=== PATIENT | female | born 1940 | race Caucasian/White ===

== ENCOUNTER 2017-12-26 12:14 | Inpatient (IN) | payer OTHER ==
[~2017-12-26] VITALS: Ht 167.6 cm; Wt 79.4 kg
[2017-12-26 13:46] LABS: BASOPHILS % 0.3 % (0.0-1.0); EOSINOPHILS # (AUTO) 0.2 (0.0-0.4); EOSINOPHILS % 2.2 % (0.0-6.0); HEMATOCRIT 35.5 % (34.2-44.1); HEMOGLOBIN 11.2 g/dL (12.0-16.0); LYMPHOCYTES # (AUTO) 1.8 (1.0-3.2); LYMPHOCYTES % 25.4 % (18.0-39.1); MEAN CORPUSCULAR HEMOGLOBIN 27.1 pg (28-32); MEAN CORPUSCULAR HGB CONC 31.5 g/dL (31-35); MONOCYTES # (AUTO) 0.8 (0.2-0.8); MONOCYTES % 11.1 % (4.4-11.3); NEUTROPHILS # (AUTO) 4.4 (2.1-6.9); NEUTROPHILS % 60.9 % (38.7-80.0); PLATELET COUNT 249 x10e3/uL (140-360); RED BLOOD COUNT 4.13 x10e6/uL (3.6-5.1); RED CELL DISTRIBUTION WIDTH 13.7 % (11.7-14.4)
[2017-12-26 14:10] LABS: ANION GAP 13.8 mmol/L (8-16); BLOOD UREA NITROGEN 21 mg/dL (7-26); BUN/CREATININE RATIO 24 (6-25); CARBON DIOXIDE 24 mmol/L (22-29); CHLORIDE 107 mmol/L (98-107); CREATININE, SERUM 0.89 mg/dL (0.57-1.11); EST GLOMERULAR FILTRATION RATE > 60 ML/MIN (60-); GLUCOSE 103 mg/dL (74-118); POTASSIUM 4.8 mmol/L (3.5-5.1); SODIUM 140 mmol/L (136-145)
--- NOTE | 2017-12-26 16:06 | Diagnostic Imaging Report ---
FOOT LEFT COMPLETE HISTORY: Infected left toe, left big toe. COMPARISON: None available. FINDINGS: Bones: No acute displaced fracture. Plantar and and dorsal calcaneal enthesophytes. Corticated erosions of the first metatarsal head. Osseous alignment is within normal limits. Joints: Moderate degenerative changes of the metatarsal phalangeal joints and interphalangeal joints. Scattered degenerative changes of the midfoot. Soft tissues: The soft tissues appear unremarkable. IMPRESSION: Corticated erosions of the first metatarsal head may represent sequela of prior osteomyelitis. Given reported known infected left toe, recommend MRI or bone scan for more sensitive evaluation. Signed by: DR. Ashish Felix MD on 12/26/2017 4:02 PM
[2017-12-26] MEDS ORDERED: LISINOPRIL10 MG PO (17:42)
[2017-12-26] MEDS ORDERED: GLUCOPHAGE850 MG PO (17:42)
[2017-12-26] MEDS ORDERED: GLIMEPIRIDE2 MG PO (17:42)
[2017-12-26] MEDS ORDERED: DEXTROSE 50% SYRINGE 50 ML IV PRN (18:00)
[2017-12-26] MEDS ORDERED: ONDANSETRON HCL INJ 2 MG/ML VIAL IV PRN (18:00)
[2017-12-26] MEDS ORDERED: SODIUM CHLORIDE FLUSH 10 ML SYR INJ PRN (18:00)
[2017-12-26] MEDS ORDERED: MORPHINE SULFATE 2 MG/ML SYR IV PRN (18:00)
[2017-12-26] MEDS ORDERED: HYDRALAZINE HCL 20 MG/ML VIAL ONE (18:34)
[2017-12-26] MEDS: PIPERACILLIN/TAZO 2.25 GM 50 ML IV SCH (18:49)
[2017-12-26 19:30] VITALS: BP 174/78
[2017-12-26 20:00] VITALS: BP 174/75
[2017-12-26] MEDS ORDERED: SODIUM CHLORIDE 0.9% 250ML 250 ML ONE (20:55)
[2017-12-26] MEDS: VANCOMYCIN 1GM/NS 250 ML 250 ML IV SCH (20:57)
[2017-12-26] MEDS: INSULIN LISPRO 100 UNIT/1 ML 3ML VIAL SQ SCH (21:00)
[2017-12-27] VITALS (7 sets, daily range): BP systolic 155–189; BP diastolic 72–92
[2017-12-27 06:19] LABS: BASOPHILS % 0.2 % (0.0-1.0); EOSINOPHILS # (AUTO) 0.2 (0.0-0.4); EOSINOPHILS % 2.7 % (0.0-6.0); HEMATOCRIT 35.1 % (34.2-44.1); HEMOGLOBIN 11.4 g/dL (12.0-16.0); LYMPHOCYTES # (AUTO) 1.2 (1.0-3.2); MEAN CORPUSCULAR HEMOGLOBIN 27.3 pg (28-32); MEAN CORPUSCULAR HGB CONC 32.5 g/dL (31-35); MONOCYTES # (AUTO) 0.5 (0.2-0.8); MONOCYTES % 8.8 % (4.4-11.3); PLATELET COUNT 237 x10e3/uL (140-360); RED BLOOD COUNT 4.18 x10e6/uL (3.6-5.1); RED CELL DISTRIBUTION WIDTH 13.8 % (11.7-14.4)
[2017-12-27 06:38] LABS: ALANINE AMINOTRANSFERASE 11 IU/L (0-55); ALBUMIN 3.6 g/dL (3.5-5.0); ALBUMIN/GLOBULIN RATIO 1.1 (0.8-2.0); ALKALINE PHOSPHATASE 69 IU/L (40-150); ANION GAP 7.2 mmol/L (8-16); BLOOD UREA NITROGEN 16 mg/dL (7-26); BUN/CREATININE RATIO 18 (6-25); CALCIUM 10.4 mg/dL (8.4-10.2); CARBON DIOXIDE 30 mmol/L (22-29); CHLORIDE 106 mmol/L (98-107); CREATININE, SERUM 0.88 mg/dL (0.57-1.11); EST GLOMERULAR FILTRATION RATE > 60 ML/MIN (60-); GLUCOSE 169 mg/dL (74-118); POTASSIUM 4.2 mmol/L (3.5-5.1); SODIUM 139 mmol/L (136-145)
[2017-12-27] MEDS: INSULIN LISPRO 100 UNIT/1 ML 3ML VIAL SQ SCH ×4 (07:30→21:00)
[2017-12-27] MEDS: PIPERACILLIN/TAZO 2.25 GM 50 ML IV SCH ×2 (09:21→16:28)
[2017-12-27] MEDS: LISINOPRIL 10 MG TAB PO SCH (10:35)
--- NOTE | 2017-12-27 11:32 | History and Physical ---
PRIMARY CARE PHYSICIAN: Dr. aJn Batista DREDGE OPERATOR SUPERVISOR: Dr. Juan Pablo Guzman CHIEF COMPLAINT: Left greater toe infection and pain. HISTORY OF PRESENT ILLNESS: A 77-year-old female with history of left greater toe problem for a week now. The patient noticed an increasing redness and swelling. Patient is admitted for further evaluation. Zosyn and vancomycin antibiotics has been initiated. The patient is otherwise stable. PAST MEDICAL HISTORY 1. Diabetes type 2, on oral hypoglycemic medication. 2. Hypertension. 3. Mild peripheral arterial disease. 4. Osteoarthritis. 5. Chronic lower back pain. PAST SURGICAL HISTORY: Complete hysterectomy and eye surgery. SOCIAL HISTORY: The patient does not smoke or use alcohol. No recreational drugs. ALLERGIES: TO CEFDINIR. HOME MEDICATIONS: List reviewed. The patient is on 1. Amaryl. 2. Lisinopril. 3. Metformin. PHYSICAL EXAMINATION VITAL SIGNS: Temperature is 98, blood pressure 168/75, pulse rate 67, and respirations 18. GENERAL: The patient is not in acute distress. She is awake. HEENT: Normocephalic and atraumatic. Sclerae are anicteric. NECK: Supple grossly. PULMONARY: Diminished breath sounds. CARDIOVASCULAR: S1 and S2. Regular rate and rhythm. ABDOMEN: Soft. Positive bowel sounds. Grossly nontender, non-distention. EXTREMITIES: No gross cyanosis or edema. NEUROLOGIC: No gross focal deficit. SKIN: Left greater toe, there are some bruises along the toenail area. There is no pustular discharge. There is no opening. There is no significant swelling. IMAGING: X-ray; cortical erosion of the first metatarsal head may represent sequela of prior osteomyelitis. Recommend MRI of the foot. LABORATORY: WBC is 7.1, hemoglobin 11.2, hematocrit 35, platelets 249. Chemistries; sodium is 140, potassium 4.8, chloride 107, bicarb 24, BUN 21, creatinine 0.9, and glucose 103. IMPRESSION 1. Left greater toe infection. There is no ulceration. There is redness above the toenail area without any pus. There is no significant swelling. 2. Baseline oral medication. 3. Diabetes type 2. 4. Hypertension. PLAN: Resume home medications, insulin sliding scale coverage, Zosyn, and IV vancomycin. MRI of the left foot. Dr. Guzman is on the case. Job#: [id number] SANDY
[2017-12-27] MEDS: GLIMEPIRIDE 2 MG TAB PO SCH (16:28)
[2017-12-27] MEDS ORDERED: PIPERACILLIN/TAZO 2.25 GM 50 ML IV SCH (17:00)
[2017-12-27] MEDS: VANCOMYCIN 1GM/NS 250 ML 250 ML IV SCH (17:44)
[2017-12-28] VITALS (9 sets, daily range): BP systolic 154–175; BP diastolic 67–87
[2017-12-28] MEDS: PIPERACILLIN/TAZO 2.25 GM 50 ML IV SCH ×4 (01:00→19:05)
--- NOTE | 2017-12-28 02:08 | Consultation ---
DATE OF CONSULTATION: PATIENT'S AGE: 77 HISTORY OF CHIEF COMPLAINT: Ms Vee is well known to me, 77-year-old female with a history of left hallux and first metatarsophalangeal joint ulcerations and infections. She was in her normal state of health and noticed bruising, redness, swelling, and some degree of pain on her left lower extremity. This was approximately 1 week ago. She ultimately presented to the emergency room on Thursday and was admitted for further workup and evaluation of her left hallux redness, swelling, bruising, and pain. Radiographic evaluation through ER showed possible osteomyelitis, so the patient was admitted for further medical workup. PAST MEDICAL HISTORY: Does include diabetes type 2, hypertension, peripheral arterial disease, and osteoarthritis. She has chronic low back pain. PAST SURGICAL HISTORY: Includes a hysterectomy and eye surgery. SOCIAL HISTORY: The patient does not smoke or use alcohol. ALLERGIES: SHE IS ALLERGIC TO CEFDINIR. HOME MEDICATIONS: Please see medical reconciliation sheet. PHYSICAL EVALUATION OF LOWER EXTREMITIES VASCULAR STATUS: The patient has non-palpable pedal pulses near the dorsalis pedis or posterior tibial. Skin temperature is warm. Capillary refill is adequate. NEUROLOGICAL: She has a loss of protective sensation as evidenced by [place] monofilament testing. DERMATOLOGIC: No other significant lesions are present. Chronic ulcers of first MPJ sub hallux. MUSCULOSKELETAL: With regards to left toe, there are no ulcerations surrounding the distal aspect of the toe nor the plantar aspect of the first metatarsophalangeal joint. There is bruising at the proximal fold of the hallux. The hallux is thickened and mycotic. Radiographs do show cortical erosion of the first metatarsal head, which may represent prior osteomyelitis. Recommendation has been made for MRI of the left foot, which the patient actually underwent today. The results are not yet available. LABORATORIES: Show elevated white count. IMPRESSION: Infection of the left hallux possible osteomyelitis. No ulceration is currently present. She has been started on IV antibiotics. MRI has been ordered. I will review the results of the MRI on Thursday and make further recommendations. PLAN: At this point, the swelling is down significantly since admission and IV antibiotics have been started. The patient is tolerating the medications well. No need for any dressings or local wound care at this point. I will follow with her next week. Job#: [id number] ARNOLDO
[2017-12-28 06:48] LABS: BLOOD UREA NITROGEN 17 mg/dL (7-26); BUN/CREATININE RATIO 19 (6-25); CALCIUM 8.5 mg/dL (8.4-10.2); CARBON DIOXIDE 23 mmol/L (22-29); CHLORIDE 105 mmol/L (98-107); CREATININE, SERUM 0.89 mg/dL (0.57-1.11); EST GLOMERULAR FILTRATION RATE > 60 ML/MIN (60-); GLUCOSE 154 mg/dL (74-118); SODIUM 136 mmol/L (136-145)
[2017-12-28] MEDS: LISINOPRIL 10 MG TAB PO SCH (08:19)
[2017-12-28] MEDS: GLIMEPIRIDE 2 MG TAB PO SCH ×2 (08:19→18:52)
--- NOTE | 2017-12-28 08:19 | Diagnostic Imaging Report ---
TECHNIQUE: Magnetic resonance imaging of the LEFT foot was performed WITHOUT injected contrast. HISTORY: Pain COMPARISON: None available. DISCUSSION: Soft tissue swelling and edema of the hallux. Focal soft tissue erosion dorsal aspect. Mild bone marrow edema within the distal phalanx without T1 replacement. Remainder of the bone marrow signal is normal. Hallux valgus with degenerative arthrosis of the first MTP joint. Scattered post traumatic deformities of the forefoot. IMPRESSION: Probable early osteomyelitis of the distal phalanx of the hallux. Signed by: Dr. Torey Jones M.D. on 12/28/2017 8:16 AM
[2017-12-28] MEDS: INSULIN LISPRO 100 UNIT/1 ML 3ML VIAL SQ SCH ×4 (08:20→21:00)
[2017-12-28] MEDS ORDERED: LISINOPRIL 10 MG TAB PO SCH (09:00)
--- NOTE | 2017-12-28 15:53 | Consultation ---
DATE OF CONSULTATION: HISTORY OF PRESENT ILLNESS: Ms. Kearns is a 77-year-old female who has history of diabetes mellitus, hypertension, peripheral vascular disease, osteoarthritis, chronic back pain, complete hysterectomy for cancer, eye surgery, and foot surgery. The patient comes in with left greater toe infection. She had it for more than a week. It was red and swollen. She took oral antibiotic without any improvement. She came here and started IV vancomycin and Zosyn. Infectious disease was consulted. There is some improvement. The patient denies history of specific trauma. HOME MEDICATIONS: Amaryl, lisinopril, and metformin. PAST MEDICAL HISTORY: Diabetes mellitus, hypertension, peripheral vascular disease, osteoarthritis, and back pain. PAST SURGICAL HISTORY: Hysterectomy. ALLERGIES: NKA. SOCIAL HISTORY: There is no smoking, drug abuse, or alcohol abuse. FAMILY HISTORY: Hypertension. REVIEW OF SYSTEMS HEENT: Negative. PULMONARY: Negative. CARDIAC: Negative. : Negative. PHYSICAL EXAMINATION GENERAL: She is currently alert and oriented, does not seem to be in acute distress. VITALS: Stable, currently afebrile. HEENT: She is not icteric. NECK: Supple. CHEST: Clear. HEART: S1 and S2. No murmur. ABDOMEN: Soft. Bowel sounds present. There is erythema. There is edema of the foot as mentioned above of the big toe on the left foot. LABORATORY DATA: White count 5.9, hemoglobin 11.4. Her sodium 136, potassium 4.0, creatinine 0.89. Her MRI of the foot shows early osteomyelitis of the distal phalanx of the hallux. IMPRESSION AND PLAN: Osteomyelitis. Recommend vancomycin 1 gram q. 12 hours. Obtain a . Obtain a PICC line. Once that arranged, will be discharged home with IV antibiotic for 2 weeks. Follow up as an outpatient. Job#: [id number] MONA
[2017-12-28] MEDS: VANCOMYCIN 1GM/NS 250 ML 250 ML IV SCH (16:26)
--- NOTE | 2017-12-28 18:35 | Diagnostic Imaging Report ---
A single frontal view of the chest. HISTORY: s/p PICC line placement COMPARISON: None available. DISCUSSION: Portable technique, limits sensitivity of the exam. Notification regarding availability of the images on December 28, 2017 at 1830. Tubes/Lines: A right upper extremity PICC line is in place, the tip of the catheter projects in the region of the proximal superior vena cava. Lungs and pleura: Mild left basilar atelectasis and probable trace effusion. The remainder of the lungs appear clear. Heart and mediastinum: The cardiomediastinal silhouette appears unremarkable. Bones: No acute osseous lesion is identified, given this limited exam. IMPRESSION: 1. Status post right upper from a PICC line placement, as detailed above. 2. Left basilar atelectasis and probable trace effusion. Signed by: Dr. Carson Forde D.O., M.M.M. on 12/28/2017 6:32 PM
[2017-12-29] VITALS (8 sets, daily range): BP systolic 144–191; BP diastolic 68–90
[2017-12-29] MEDS: PIPERACILLIN/TAZO 2.25 GM 50 ML IV SCH ×3 (06:00→22:18)
[2017-12-29] MEDS: VANCOMYCIN 1GM/NS 250 ML 250 ML IV SCH ×2 (06:19→18:49)
[2017-12-29] MEDS: GLIMEPIRIDE 2 MG TAB PO SCH ×2 (08:11→16:30)
[2017-12-29] MEDS: LISINOPRIL 10 MG TAB PO SCH (08:11)
[2017-12-29] MEDS: INSULIN LISPRO 100 UNIT/1 ML 3ML VIAL SQ SCH ×4 (08:12→21:00)
--- NOTE | 2017-12-29 14:49 | Progress Note ---
DATE: The patient's chart is reviewed today and foot examined. She is doing markedly better, awaiting arrangements for IV antibiotics. Dr. De Dios's note is read and appreciated. She does have osteomyelitis of the right hallux, and recommendation for vancomycin 1 gram q.12 has been made via PICC line. A PICC line has been placed. The patient is awaiting discharge to shelter facility for a 2-week application of IV antibiotics as per Dr. De Dios's recommendation. The patient understands and is anxious to get started. In the interim, she has no new complaints. Her foot is as before with mild redness around the interphalangeal joint of the right hallux. No open lesions at this point. The patient is fully understanding of the need for IV antibiotics and will be following up with me within 1 week from discharge from SNF. Job#: [id number]
[2017-12-30] VITALS (7 sets, daily range): BP systolic 152–179; BP diastolic 72–86
[2017-12-30] MEDS: PIPERACILLIN/TAZO 2.25 GM 50 ML IV SCH ×3 (06:13→22:02)
[2017-12-30 06:19] LABS: BASOPHILS % 0.3 % (0.0-1.0); EOSINOPHILS # (AUTO) 0.2 (0.0-0.4); EOSINOPHILS % 3.5 % (0.0-6.0); HEMATOCRIT 37.5 % (34.2-44.1); HEMOGLOBIN 11.8 g/dL (12.0-16.0); LYMPHOCYTES # (AUTO) 1.5 (1.0-3.2); LYMPHOCYTES % 25.2 % (18.0-39.1); MEAN CORPUSCULAR HEMOGLOBIN 27.1 pg (28-32); MEAN CORPUSCULAR HGB CONC 31.5 g/dL (31-35); MEAN CORPUSCULAR VOLUME 86.2 fL (81-99); MONOCYTES # (AUTO) 0.5 (0.2-0.8); MONOCYTES % 8.9 % (4.4-11.3); NEUTROPHILS # (AUTO) 3.6 (2.1-6.9); NEUTROPHILS % 61.9 % (38.7-80.0); PLATELET COUNT 256 x10e3/uL (140-360); RED BLOOD COUNT 4.35 x10e6/uL (3.6-5.1); RED CELL DISTRIBUTION WIDTH 13.6 % (11.7-14.4)
[2017-12-30] MEDS: VANCOMYCIN 1GM/NS 250 ML 250 ML IV SCH ×2 (06:30→18:28)
[2017-12-30 06:38] LABS: ANION GAP 16.2 mmol/L (8-16); CALCIUM 9.4 mg/dL (8.4-10.2); CREATININE, SERUM 0.95 mg/dL (0.57-1.11); POTASSIUM 4.2 mmol/L (3.5-5.1)
[2017-12-30] MEDS: INSULIN LISPRO 100 UNIT/1 ML 3ML VIAL SQ SCH ×4 (07:30→20:27)
[2017-12-30] MEDS: GLIMEPIRIDE 2 MG TAB PO SCH ×2 (08:23→16:48)
[2017-12-30] MEDS: LISINOPRIL 10 MG TAB PO SCH (08:28)
[2017-12-30] MEDS ORDERED: SODIUM CHLORIDE 0.9% 250ML 250 ML ONE (18:37)
[2017-12-31] VITALS (7 sets, daily range): BP systolic 125–187; BP diastolic 69–75
[2017-12-31] MEDS: PIPERACILLIN/TAZO 2.25 GM 50 ML IV SCH ×2 (06:13→14:24)
[2017-12-31] MEDS: VANCOMYCIN 1GM/NS 250 ML 250 ML IV SCH (06:30)
[2017-12-31] MEDS: INSULIN LISPRO 100 UNIT/1 ML 3ML VIAL SQ SCH ×3 (07:30→16:30)
[2017-12-31] MEDS: GLIMEPIRIDE 2 MG TAB PO SCH ×2 (08:22→17:34)
[2017-12-31] MEDS: LISINOPRIL 10 MG TAB PO SCH (08:23)
[2017-12-31] MEDS ORDERED: LISINOPRIL 10 MG TAB PO SCH (17:00)
[2018-01-01] MEDS ORDERED: VANCOMYCIN 1GM/NS 250 ML 250 ML IV SCH (07:00)
--- OUTSIDE RECORDS SUMMARY | 2018-01-05 11:19 | XMS REPORT ---
Author Author [facility] Address Unknown Phone Unavailable Care Team Providers Care Linen Folder Name Role Phone DANIEL MELENDEZ Unavailable Unavailable Problems This patient has no known problems. Allergies, Adverse Reactions, Alerts This patient has no known allergies or adverse reactions. Medications This patient has no known medications. Results Test Description Test Time Test Comments Text Results Atomic Results Result Comments CHEST XRAY LINE PLACEMENT 2017-12-28 18:30:00 [facility] [address] [address] Patient Name: DEWEY MENDIETA MR #: [id number] : 1940 Age/Sex: 77/F Req #: [id number] [facility] Physician: DANIEL MELENDEZ MD Ordered by: SWETA CORRALES MD Report #: [id number] Location: MED/SURG3 Room/Bed: [facility] Procedure: [id number] DX/CHEST XRAY LINE PLACEMENT Exam Date: 12/28/17 Exam Time: 1645 REPORT STATUS: Signed A single frontal view of the chest. HISTORY: s/p PICC line placement COMPARISON: None available. DISCUSSION: Portable technique, limits sensitivity of the exam. Notification regarding availability of the images on December 28, 2017 at 1830. Tubes/Lines: A right upper extremity PICC line is in place, the tip of the catheter projects in the region of the proximal superior vena cava. Lungs and pleura: Mild left basilar atelectasis and probable trace effusion. The remainder of the lungs appear clear. Heart and mediastinum: The cardiomediastinal silhouette appears unremarkable. Bones: No acute osseous lesion is identified, given this limited exam. IMPRESSION: 1. Status post right upper from a PICC line placement, as detailed above. 2. Left basilar atelectasis and probable trace effusion. Signed by: Dr. Erasmo Forde D.O., M.M.M. on 12/28/2017 6:32 PM Dictated By: ERASMO FORDE DO 31 Transcribed By: MARCELO on 12/28/171831 COPY TO: SWETA CORRALES MD MRI FOOT LEFT WO 2017-12-28 08:13:00 [address] [address] Patient Name: DEWEY ZHENG MR #: [id number] : 1940 Age/Sex: 77/F Req #: [id number] Adm Physician: DANIEL MELENDEZ MD Ordered by: ELIZABETH CHAVEZ BUTTER FAT TESTER Report #: [id number] Location: MED/SURG3 Room/Bed: [facility] Procedure: [id number] MRI/MRI FOOT LEFT WO Exam Date: Exam Time: REPORT STATUS: Signed TECHNIQUE: Magnetic resonance imaging of the LEFT foot was performed WITHOUT injected contrast. HISTORY: Pain COMPARISON: None available. DISCUSSION: Soft tissue swelling and edema of the hallux. Focal soft tissue erosion dorsal aspect. Mild bone marrow edema within the distal phalanx without T1 replacement. Remainder of the bone marrow signal is normal. Hallux valgus with degenerative arthrosis of the first MTP joint. Scattered post traumatic deformities of the forefoot. IMPRESSION: Probable early osteomyelitis of the distal phalanx of the hallux. Signed by: Dr. Ronda Cheung M.D. on 12/28/2017 8:16 AM Dictated By: RONDA CHEUNG MD 5 Transcribed By: MARCELO on 12/28/17815 COPY TO: ELIZABETH CHAVEZ NP FOOT LEFT COMPLETE 2017-12-26 15:58:00 [address] [address] Patient Name: DEWEY ZHENG MR #: [id number] : 1940 Age/Sex: 77/F Req #: [id number] Adm Physician: Ordered by: ELIZABETH CHAVEZ NP Report #: [id number] Location: ER Room/Bed: Procedure: [id number] DX/FOOT LEFT COMPLETE Exam Date: 12/26/17 Exam Time: 1419 REPORT STATUS: Signed FOOT LEFT COMPLETE HISTORY: Infected left toe, left big toe. COMPARISON: None available. FINDINGS: Bones: No acute displaced fracture. Plantar and and dorsal calcaneal enthesophytes. Corticated erosions of the first metatarsal head. Osseous alignment is within normal limits. Joints: Moderate degenerative changes of the metatarsal phalangeal joints and interphalangeal joints. Scattered degenerative changes of the midfoot. Soft tissues: The soft tissues appear unremarkable. IMPRESSION: Corticated erosions of the first metatarsal head may represent sequela of prior osteomyelitis. Given reported known infected left toe, recommend MRI or bone scan for more sensitive evaluation. Signed by: DR. Ashish Pittman MD on 12/26/2017 4:02 PM Dictated By: ASHISH PITTMAN MD 1602 Transcribed By: MARCELO on 12/26/17 [id number] COPY TO: ELIZABETH CHAVEZ NP
== END 2017-12-31 19:00 | disposition home or self-care (01) | DRG 638 ==
LOC: ER 12:14 → ERHOLD 18:12 → MED/SURG3 18:20
PROVIDERS: ADMIT Internal Medicine; ATTEND Internal Medicine
PROC: 02HV33Z Insertion of Infusion Device into Superior Vena Cava, Percutaneous Approach (ICD-10-PCS; principal; 2017-12-28)
DX: E11.69 Type 2 diabetes mellitus with other specified complication (principal); M86.8X7 Other osteomyelitis, ankle and foot; M19.90 Unspecified osteoarthritis, unspecified site; I10 Essential (primary) hypertension; M54.9 Dorsalgia, unspecified; Z79.84 Long term (current) use of oral hypoglycemic drugs; E11.51 Type 2 diabetes mellitus with diabetic peripheral angiopathy without gangrene; R53.81 Other malaise
CPT/HCPCS: 36415; 36569; 71045; 80048; 80053; 80202; 82948; 83036; 84443; 85025; 85651; 93925; 99284; J0360; J2543; J3370; J7050

== ENCOUNTER → 2018-02-23 | Outpatient (CLI) | payer OTHER ==
[~2018-02-23] MED LIST: GLIMEPIRIDE2 MG PO; GLUCOPHAGE850 MG PO; IOPAMIDOL 370 MG/ML 200 ML INFUS..BTL INJ ONE; LISINOPRIL10 MG PO; SODIUM CHLORIDE 0.9% 500ML 500 ML ONE; SODIUM CHLORIDE 0.9% 50ML 50 ML ONE
[2018-02-23 14:36] LABS: CREATININE, SERUM 1.03 mg/dL (0.57-1.11)
--- NOTE | 2018-02-23 17:44 | Diagnostic Imaging Report ---
EXAM: CT Abdomen and Pelvis WITH contrast INDICATION: Abdominal Pain COMPARISON: None. TECHNIQUE: Abdomen and pelvis were scanned utilizing a multidetector helical scanner from the lung base to the pubic symphysis after administration of IV contrast. Coronal and sagittal reformations were obtained. Routine protocol was performed. Scan was performed when during portal venous phase. IV CONTRAST: 100 cc of Isovue 370 ORAL CONTRAST: Water COMPLICATIONS: None RADIATION DOSE: Total DLP: 449 mGy*cm CTDIvol has been reviewed. It is below the limits set by the Radiation Protocol Committee (RPC). FINDINGS: LINES and TUBES: None. LOWER THORAX: There is a 2 mm subpleural nodule in the right middle lobe on series 108, image 19. There is 5 mm partially visualized nodular opacity in the left lower lobe on image 1. Patchy dependent subsegmental atelectasis in the lower lobes. Atherosclerotic calcifications of the coronary vessels. Mitral annular calcifications. HEPATOBILIARY: Subcentimeter right hepatic lobe hypodensities too small to characterize, but likely represents a cyst. No biliary ductal dilation. GALLBLADDER: Cholelithiasis without CT evidence of cholecystitis. SPLEEN: No splenomegaly. PANCREAS: No focal masses or ductal dilatation. ADRENALS: Mild diffuse thickening of the left adrenal gland measuring up to 1 cm without focal nodule. KIDNEYS/URETERS: Kidneys enhance symmetrically. No evidence of hydronephrosis or stone. Subcentimeter hypodensity in the left upper pole kidney is too small to characterize but likely represents a cyst. GI TRACT: No evidence of wall thickening or distension. The appendix is not visualized. PELVIC ORGANS/BLADDER: Status post hysterectomy. LYMPH NODES: No lymphadenopathy. VESSELS: Moderate atherosclerotic calcifications of the abdominal aorta and branch vessels. Surgical clips are present adjacent to the aortic bifurcation. 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 PERITONEUM / RETROPERITONEUM: No free air or fluid. BONES AND SOFT TISSUES: Degenerative changes of the visualized spine without acute bony findings. CONCLUSION: No acute findings in the abdomen or pelvis. Cholelithiasis without CT evidence of cholecystitis. Status post hysterectomy. 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 Bilateral lower lobe solid pulmonary nodules measuring up to 5 mm. In a patient with no risk for malignancy, no follow-up is suggested. If the patient is a smoker or has other risk factor for malignancy, a chest CT may be considered for further evaluation. Signed by: Dr. Cece Casas MD on 02/23/2018 5:41 PM
== END ==
LOC: CT 13:34
PROVIDERS: ATTEND Internal Medicine Infectious Disease
DX: R10.9 Unspecified abdominal pain (principal)
CPT/HCPCS: 36415; 74177; 82565; 84520; 96360; J7040; Q9967

== ENCOUNTER 2023-08-27 10:19 | Inpatient (IN) | payer MEDICARE, OTHER ==
[2023-08-27] VITALS (7 sets, daily range): BP systolic 123–166; BP diastolic 55–70; PULSE 68–78; RESP 15–19; TEMP 97.1–98.7; O2SAT 96–100
[~2023-08-27] VITALS: Ht 167.6 cm; Wt 76.7 kg
[~2023-08-27 10:19] MED LIST changes: -IOPAMIDOL 370 MG/ML 200 ML INFUS..BTL INJ ONE; -SODIUM CHLORIDE 0.9% 500ML 500 ML ONE; -SODIUM CHLORIDE 0.9% 50ML 50 ML ONE
[2023-08-27 10:54] LABS: BASOPHILS % 0.2 % (0.0-1.0); EOSINOPHILS # (AUTO) 0.1 (0.0-0.4); EOSINOPHILS % 1.7 % (0.0-6.0); HEMATOCRIT 34.2 % (34.2-44.1); LYMPHOCYTES # (AUTO) 1.3 (1.0-3.2); LYMPHOCYTES % 15.5 % (18.0-39.1); MEAN CORPUSCULAR HEMOGLOBIN 27.7 pg (28-32); MEAN CORPUSCULAR HGB CONC 32.2 g/dL (31-35); MEAN CORPUSCULAR VOLUME 86.1 fL (81-99); MONOCYTES # (AUTO) 0.8 (0.2-0.8); MONOCYTES % 9.3 % (4.4-11.3); NEUTROPHILS % 72.9 % (38.7-80.0); PLATELET COUNT 346 x10e3/uL (140-360); RED BLOOD COUNT 3.97 x10e6/uL (3.6-5.1); RED CELL DISTRIBUTION WIDTH 13.1 % (11.7-14.4)
[2023-08-27] MEDS: Vancomycin IV 1 GM in SODIUM CHLORIDE 0.9% 250ML 250 ML IV ONE (10:58)
[2023-08-27] MEDS: MUPIROCIN 2% OINT 22 GM TUBE TOP SCH (10:59)
[2023-08-27 11:14] LABS: INR 0.98; PROTHROMBIN TIME 13.7 seconds (11.9-14.5)
[2023-08-27 11:15] LABS: ALBUMIN 3.4 g/dL (3.5-5.0); ALBUMIN/GLOBULIN RATIO 0.8 (0.8-2.0); ANION GAP 15.9 mmol/L (8-16); BILIRUBIN,TOTAL 0.4 mg/dL (0.2-1.2); CALCIUM 9.3 mg/dL (8.4-10.2); CREATININE, SERUM 1.73 mg/dL (0.57-1.11); MAGNESIUM 1.9 MG/DL (1.3-2.1); POTASSIUM 4.9 mmol/L (3.5-5.1); TOTAL PROTEIN 7.5 g/dL (6.5-8.1)
[2023-08-27 11:22] LABS: TROPONIN I 0.015 ng/mL (0-0.300)
[2023-08-27] MEDS ORDERED: ONDANSETRON HCL INJ 2MG/ML 2ML 2 MG/ML VIAL IV PRN (11:45)
[2023-08-27] MEDS: SODIUM CHLORIDE 0.9% 1000ML 1,000 ML IV SCH (12:49)
[2023-08-27] MEDS: ACETAMINOPHEN 325 MG TAB PO PRN (15:34)
[2023-08-28] VITALS (8 sets, daily range): BP systolic 139–151; BP diastolic 58–77; PULSE 63–89; RESP 16–18; TEMP 97.5–97.9; O2SAT 96–100
[2023-08-28 05:38] LABS: EOSINOPHILS # (AUTO) 0.1 (0.0-0.4); EOSINOPHILS % 1.5 % (0.0-6.0); HEMATOCRIT 37.4 % (34.2-44.1); HEMOGLOBIN 11.1 g/dL (12.0-16.0); LYMPHOCYTES # (AUTO) 0.9 (1.0-3.2); LYMPHOCYTES % 9.9 % (18.0-39.1); MEAN CORPUSCULAR HEMOGLOBIN 27.1 pg (28-32); MEAN CORPUSCULAR HGB CONC 29.7 g/dL (31-35); MEAN CORPUSCULAR VOLUME 91.4 fL (81-99); MONOCYTES # (AUTO) 0.7 (0.2-0.8); MONOCYTES % 8.3 % (4.4-11.3); NEUTROPHILS % 79.8 % (38.7-80.0); PLATELET COUNT 362 x10e3/uL (140-360); RED BLOOD COUNT 4.09 x10e6/uL (3.6-5.1); RED CELL DISTRIBUTION WIDTH 13.1 % (11.7-14.4); WHITE BLOOD COUNT 8.81 x10e3/uL (4.8-10.8)
[2023-08-28] MEDS ORDERED: DEXTROSE 50% SYRINGE 50 ML IV PRN (06:30)
[2023-08-28 06:33] LABS: ALBUMIN 3.3 g/dL (3.5-5.0); ALBUMIN/GLOBULIN RATIO 0.8 (0.8-2.0); ANION GAP 15.1 mmol/L (8-16); BILIRUBIN,TOTAL 0.5 mg/dL (0.2-1.2); CALCIUM 9.2 mg/dL (8.4-10.2); CREATININE, SERUM 1.63 mg/dL (0.57-1.11); POTASSIUM 5.1 mmol/L (3.5-5.1); TOTAL PROTEIN 7.4 g/dL (6.5-8.1)
[2023-08-28] MEDS: INSULIN REGULAR, HUMAN 100 UNIT/1 ML SQ SCH (07:30)
[2023-08-28] MEDS ORDERED: PRAVASTATIN SOD40 MG (09:54)
[2023-08-28] MEDS ORDERED: BUPIVACAINE HCL 0.5% INJ 30 ML VIAL INJ ONE (10:12)
[2023-08-28] MEDS ORDERED: Vancomycin IV 1 GM VIAL ONE (10:43)
[2023-08-28] MEDS ORDERED: NEOSTIGMINE 1 MG/ML 10ML VIAL ONE (11:08)
[2023-08-28] MEDS ORDERED: FENTANYL CITRATE/PF 100MCG/2 ML INJ ONE (12:12)
[2023-08-28] MEDS ORDERED: DEXAMETHASONE SOD PHOS INJ 4 MG/ML SDV ONE (13:46)
[2023-08-28] MEDS ORDERED: ONDANSETRON HCL INJ 2MG/ML 2ML 2 MG/ML VIAL ONE (13:46)
[2023-08-28] MEDS ORDERED: ROCURONIUM BROMIDE 10 MG/ML 5ML VIAL IV ONE (13:46)
[2023-08-28] MEDS ORDERED: PROPOFOL IV EMULSION 10 MG/ML 20 ML VIAL ONE (13:46)
[2023-08-28] MEDS ORDERED: SEVOFLURANE INHAL SOLN 250 ML PEN BTL ONE (13:46)
[2023-08-28] MEDS ORDERED: LIDOCAINE HCL 2% LOCAL INJ 5 ML SDV VIAL INJ ONE (13:46)
[2023-08-28] MEDS ORDERED: ACETAMINOPHEN 1000 MG/100 ML IV ONE (13:46)
[2023-08-28] MEDS: TRAMADOL HCL 50 MG TAB PO PRN (22:46)
[2023-08-29] VITALS (8 sets, daily range): BP systolic 132–156; BP diastolic 49–69; PULSE 55–68; RESP 16–20; TEMP 97.4–97.9; O2SAT 97–100
[2023-08-29] MEDS: Morphine 2mg Syringe 2 MG/ML SYR IV PRN (14:14)
[2023-08-29] MEDS ORDERED: ONDANSETRON HCL 4 MG ORAL DISINTEGRATING TAB PO PRN (17:30)
[2023-08-30] VITALS (8 sets, daily range): BP systolic 148–167; BP diastolic 58–79; PULSE 65–95; RESP 17–20; TEMP 97.6–98.4; O2SAT 96–100
[2023-08-30 06:14] LABS: BASOPHILS % 0.3 % (0.0-1.0); EOSINOPHILS # (AUTO) 0.3 (0.0-0.4); EOSINOPHILS % 3.9 % (0.0-6.0); HEMATOCRIT 33.8 % (34.2-44.1); HEMOGLOBIN 10.5 g/dL (12.0-16.0); LYMPHOCYTES # (AUTO) 1.5 (1.0-3.2); MEAN CORPUSCULAR HEMOGLOBIN 27.4 pg (28-32); MEAN CORPUSCULAR HGB CONC 31.1 g/dL (31-35); MEAN CORPUSCULAR VOLUME 88.3 fL (81-99); MONOCYTES # (AUTO) 0.5 (0.2-0.8); MONOCYTES % 8.4 % (4.4-11.3); NEUTROPHILS # (AUTO) 4.1 (2.1-6.9); NEUTROPHILS % 63.1 % (38.7-80.0); PLATELET COUNT 316 x10e3/uL (140-360); RED BLOOD COUNT 3.83 x10e6/uL (3.6-5.1); RED CELL DISTRIBUTION WIDTH 13.2 % (11.7-14.4); WHITE BLOOD COUNT 6.42 x10e3/uL (4.8-10.8)
[2023-08-30 07:09] LABS: ANION GAP 13.1 mmol/L (8-16); CALCIUM 9.4 mg/dL (8.4-10.2); CREATININE, SERUM 0.98 mg/dL (0.57-1.11); POTASSIUM 5.1 mmol/L (3.5-5.1)
[2023-08-30] MEDS: GABAPENTIN 100 MG CAP PO SCH (09:42)
[2023-08-31] VITALS (8 sets, daily range): BP systolic 106–159; BP diastolic 83–98; PULSE 79–100; RESP 17–18; TEMP 97.5–98; O2SAT 97–100
[2023-08-31 05:52] LABS: BASOPHILS % 0.2 % (0.0-1.0); EOSINOPHILS # (AUTO) 0.2 (0.0-0.4); HEMATOCRIT 35.8 % (34.2-44.1); HEMOGLOBIN 11.3 g/dL (12.0-16.0); LYMPHOCYTES # (AUTO) 1.2 (1.0-3.2); LYMPHOCYTES % 21.6 % (18.0-39.1); MEAN CORPUSCULAR HEMOGLOBIN 27.7 pg (28-32); MEAN CORPUSCULAR HGB CONC 31.6 g/dL (31-35); MEAN CORPUSCULAR VOLUME 87.7 fL (81-99); MONOCYTES # (AUTO) 0.6 (0.2-0.8); MONOCYTES % 10.5 % (4.4-11.3); NEUTROPHILS # (AUTO) 3.7 (2.1-6.9); NEUTROPHILS % 64.4 % (38.7-80.0); PLATELET COUNT 322 x10e3/uL (140-360); RED BLOOD COUNT 4.08 x10e6/uL (3.6-5.1); RED CELL DISTRIBUTION WIDTH 12.9 % (11.7-14.4); WHITE BLOOD COUNT 5.73 x10e3/uL (4.8-10.8)
[2023-08-31 06:26] LABS: ANION GAP 7.7 mmol/L (8-16); CREATININE, SERUM 0.95 mg/dL (0.57-1.11); POTASSIUM 4.7 mmol/L (3.5-5.1)
[2023-08-31 07:08] LABS: CALCIUM 9.4 mg/dL (8.4-10.2)
[2023-09-01] VITALS (10 sets, daily range): BP systolic 114–165; BP diastolic 80–98; PULSE 76–98; RESP 16–20; TEMP 97.6–98.4; O2SAT 92–99
[2023-09-01 06:53] LABS: BASOPHILS % 0.2 % (0.0-1.0); EOSINOPHILS # (AUTO) 0.2 (0.0-0.4); EOSINOPHILS % 3.5 % (0.0-6.0); HEMATOCRIT 33.5 % (34.2-44.1); HEMOGLOBIN 10.7 g/dL (12.0-16.0); LYMPHOCYTES # (AUTO) 1.6 (1.0-3.2); LYMPHOCYTES % 28.7 % (18.0-39.1); MEAN CORPUSCULAR HEMOGLOBIN 27.6 pg (28-32); MEAN CORPUSCULAR HGB CONC 31.9 g/dL (31-35); MEAN CORPUSCULAR VOLUME 86.3 fL (81-99); MONOCYTES # (AUTO) 0.6 (0.2-0.8); MONOCYTES % 11.5 % (4.4-11.3); NEUTROPHILS # (AUTO) 3.1 (2.1-6.9); NEUTROPHILS % 55.7 % (38.7-80.0); PLATELET COUNT 295 x10e3/uL (140-360); RED BLOOD COUNT 3.88 x10e6/uL (3.6-5.1)
[2023-09-01 06:58] LABS: INR 0.99; PROTHROMBIN TIME 13.8 seconds (11.9-14.5)
[2023-09-01 06:59] LABS: PARTIAL THROMBOPLASTIN TIME 30.1 seconds (23.8-35.5)
[2023-09-01 07:08] LABS: CREATININE, SERUM 0.92 mg/dL (0.57-1.11)
[2023-09-01 07:34] LABS: CALCIUM 9.3 mg/dL (8.4-10.2)
[2023-09-01 08:41] LABS: ANION GAP 9.3 mmol/L (8-16); POTASSIUM 4.3 mmol/L (3.5-5.1)
[2023-09-01] MEDS: METOPROLOL TARTRATE 25 MG TAB PO SCH (10:00)
[2023-09-01] MEDS: HEPARIN SOD (PORCINE) 1000 UNIT/ML 30ML ONE (15:14)
[2023-09-01] MEDS: NITROGLYCERIN/D5W 200 MCG/ML 250 ML ONE (15:15)
[2023-09-01] MEDS: HEPARIN SOD/SOD CHLORIDE 2,000 ML ONE (15:15)
[2023-09-01] MEDS: SODIUM CHLORIDE 0.9% 1000ML 1,000 ML ONE (15:15)
[2023-09-01] MEDS: LIDOCAINE HCL 2% LOCAL 20 ML VIAL ONE (15:16)
[2023-09-01] MEDS: IOPAMIDOL 370 MG/ML 100 ML INFUS..BTL INJ ONE (15:16)
[2023-09-01] MEDS: VERAPAMIL HCL 2.5 MG/ML 2 ML VIAL ONE (15:16)
[2023-09-01] MEDS: FENTANYL CITRATE/PF 100MCG/2 ML INJ ONE (15:16)
[2023-09-01] MEDS: MIDAZOLAM HCL 2 MG/2 ML VIAL ONE (15:16)
[2023-09-01] MEDS: ASPIRIN 325 MG TAB ONE (15:17)
[2023-09-01] MEDS: CLOPIDOGREL BISULFATE 75 MG TAB ONE (15:17)
[2023-09-01] MEDS: CEFTRIAXONE 2 GM in SODIUM CHLORIDE 0.9% 100 ML IV SCH (17:09)
[2023-09-02] VITALS (7 sets, daily range): BP systolic 118–154; BP diastolic 61–88; PULSE 65–84; RESP 17–18; TEMP 98–98.7; O2SAT 93–100
[2023-09-02] MEDS: MUPIROCIN 2% OINT 22 GM TUBE TOP SCH (09:16)
[2023-09-02] MEDS ORDERED: ULTRAM 50MG50 MG PO (10:46)
[2023-09-02] MEDS ORDERED: GABAPENTIN100 MG PO (10:46)
[2023-09-02] MEDS ORDERED: LOPRESSOR25 MG PO (10:46)
== END 2023-09-02 17:35 | disposition home or self-care (01) | DRG 253 ==
LOC: ER 10:25 → ERHOLD 11:42 → MED/SURG2 13:05
PROVIDERS: ADMIT Internal Medicine; ATTEND Internal Medicine
PROC: 0QBP0ZX Excision of Left Metatarsal, Open Approach, Diagnostic (ICD-10-PCS; 2023-08-28)
PROC: 0Y6Q0Z0 Detachment at Left 1st Toe, Complete, Open Approach (ICD-10-PCS; principal; 2023-08-28 10:20)
PROC: 047Q3ZZ Dilation of Left Anterior Tibial Artery, Percutaneous Approach (ICD-10-PCS; 2023-09-01)
PROC: 047N3ZZ Dilation of Left Popliteal Artery, Percutaneous Approach (ICD-10-PCS; 2023-09-01)
PROC: B4101ZZ Fluoroscopy of Abdominal Aorta using Low Osmolar Contrast (ICD-10-PCS; 2023-09-01)
PROC: B41F1ZZ Fluoroscopy of Right Lower Extremity Arteries using Low Osmolar Contrast (ICD-10-PCS; 2023-09-01)
PROC: B41G1ZZ Fluoroscopy of Left Lower Extremity Arteries using Low Osmolar Contrast (ICD-10-PCS; 2023-09-01)
DX: E11.52 Type 2 diabetes mellitus with diabetic peripheral angiopathy with gangrene (principal); I70.262 Atherosclerosis of native arteries of extremities with gangrene, left leg; L03.116 Cellulitis of left lower limb; M86.8X7 Other osteomyelitis, ankle and foot; N17.9 Acute kidney failure, unspecified; E11.621 Type 2 diabetes mellitus with foot ulcer; E11.69 Type 2 diabetes mellitus with other specified complication; E11.22 Type 2 diabetes mellitus with diabetic chronic kidney disease; I12.9 Hypertensive chronic kidney disease with stage 1 through stage 4 chronic kidney disease, or unspecified chronic kidney disease; N18.30 Chronic kidney disease, stage 3 unspecified; I70.201 Unspecified atherosclerosis of native arteries of extremities, right leg; L97.529 Non-pressure chronic ulcer of other part of left foot with unspecified severity; E11.40 Type 2 diabetes mellitus with diabetic neuropathy, unspecified; Z79.84 Long term (current) use of oral hypoglycemic drugs; G89.29 Other chronic pain; M54.50 Low back pain, unspecified; M19.91 Primary osteoarthritis, unspecified site; Z11.52 Encounter for screening for COVID-19; Z71.81 Spiritual or religious counseling; Z79.899 Other long term (current) drug therapy
CPT/HCPCS: 36415; 37228; 75625; 75716; 80048; 80053; 82948; 83735; 84484; 85025; 85610; 85730; 87040; 87071; 87075; 87205; 88304; 88305; 88311; 93005; 93925; 94799; 96372; 99152; 99153; 99252; 99284; C1713; C1725; C1760; C1769; C1887; J0696; J1100; J1644; J2001; J2250; J2270; J2405; J2543; J2710; J7030; J7050; Q9967; U0002

== ENCOUNTER 2023-12-15 08:48 | Outpatient (RCR) | payer MEDICARE ==
[~2023-12-15 08:48] MED LIST changes: +GABAPENTIN100 MG PO; +LOPRESSOR25 MG PO; +PRAVASTATIN SOD40 MG; +ULTRAM 50MG50 MG PO
[2023-12-15 15:38] LABS: BASOPHILS % 0.3 % (0.0-1.0); EOSINOPHILS # (AUTO) 0.1 (0.0-0.4); HEMATOCRIT 40.4 % (34.2-44.1); HEMOGLOBIN 12.3 g/dL (12.0-16.0); LYMPHOCYTES # (AUTO) 0.9 (1.0-3.2); LYMPHOCYTES % 14.6 % (18.0-39.1); MEAN CORPUSCULAR HEMOGLOBIN 25.2 pg (28-32); MEAN CORPUSCULAR HGB CONC 30.4 g/dL (31-35); MEAN CORPUSCULAR VOLUME 82.8 fL (81-99); MONOCYTES # (AUTO) 0.5 (0.2-0.8); MONOCYTES % 7.6 % (4.4-11.3); NEUTROPHILS # (AUTO) 4.7 (2.1-6.9); NEUTROPHILS % 76.2 % (38.7-80.0); PLATELET COUNT 285 x10e3/uL (140-360); RED BLOOD COUNT 4.88 x10e6/uL (3.6-5.1); RED CELL DISTRIBUTION WIDTH 16.5 % (11.7-14.4); WHITE BLOOD COUNT 6.18 x10e3/uL (4.8-10.8)
[2023-12-15 15:59] LABS: ALBUMIN 3.6 g/dL (3.5-5.0); ALBUMIN/GLOBULIN RATIO 1.1 (0.8-2.0); ANION GAP 18.5 mmol/L (8-16); BILIRUBIN,TOTAL 0.8 mg/dL (0.2-1.2); CALCIUM 9.5 mg/dL (8.4-10.2); CREATININE, SERUM 1.34 mg/dL (0.57-1.11); POTASSIUM 4.5 mmol/L (3.5-5.1)
== END 2023-12-21 ==
LOC: WCC 08:48
PROVIDERS: ATTEND Nurse Practitioner Family
DX: E11.621 Type 2 diabetes mellitus with foot ulcer (principal); L97.526 Non-pressure chronic ulcer of other part of left foot with bone involvement without evidence of necrosis
CPT/HCPCS: 36415; 80053; 83036; 84134; 85025

== ENCOUNTER → 2023-12-18 | Outpatient (REF) | payer MEDICARE | LOC: MRI 09:29 | PROVIDERS: ATTEND Nurse Practitioner Family | DX: E11.621 Type 2 diabetes mellitus with foot ulcer (principal); L97.526 Non-pressure chronic ulcer of other part of left foot with bone involvement without evidence of necrosis ==

== ENCOUNTER → 2023-12-29 | Outpatient (REF) | payer MEDICARE | LOC: RAD 09:04 | PROVIDERS: ATTEND Nurse Practitioner Family | DX: Z01.818 Encounter for other preprocedural examination (principal); E11.621 Type 2 diabetes mellitus with foot ulcer; L97.526 Non-pressure chronic ulcer of other part of left foot with bone involvement without evidence of necrosis | CPT/HCPCS: 71046; 93005; 93306 ==

== ENCOUNTER 2023-12-31 15:01 | Outpatient (RCR) | payer MEDICARE ==
[~2023-12-31 15:01] MED LIST changes: +COLLAGENASE OINTMENT 30 GM TUBE ONE; +LIDOCAINE VISC 2% SOLN 15 ML UDC ONE; +LIDOCAINE/PRILOCAINE 2.5-2.5% KIT ONE
== END 2024-01-21 ==
LOC: WCC 15:01
PROVIDERS: ATTEND Internal Medicine Infectious Disease
DX: E11.621 Type 2 diabetes mellitus with foot ulcer (principal); L97.524 Non-pressure chronic ulcer of other part of left foot with necrosis of bone; Z16.23 Resistance to quinolones and fluoroquinolones; B96.5 Pseudomonas (aeruginosa) (mallei) (pseudomallei) as the cause of diseases classified elsewhere
CPT/HCPCS: 87071; 87075; 87186; 87205

== ENCOUNTER 2024-01-14 12:13 | Inpatient (IN) | payer MEDICARE ==
[~2024-01-14] VITALS: Ht 167.6 cm; Wt 76.7 kg
[~2024-01-14 12:13] MED LIST changes: -COLLAGENASE OINTMENT 30 GM TUBE ONE; -LIDOCAINE VISC 2% SOLN 15 ML UDC ONE; -LIDOCAINE/PRILOCAINE 2.5-2.5% KIT ONE
[2024-01-14 12:55] VITALS: TEMP 97.8
[2024-01-14 13:30] VITALS: PULSE 97; RESP 18
[2024-01-14 15:13] LABS: BASOPHILS % 0.1 % (0.0-1.0); EOSINOPHILS % 0.4 % (0.0-6.0); HEMOGLOBIN 11.7 g/dL (12.0-16.0); LYMPHOCYTES # (AUTO) 1.1 (1.0-3.2); LYMPHOCYTES % 15.5 % (18.0-39.1); MEAN CORPUSCULAR HEMOGLOBIN 24.3 pg (28-32); MEAN CORPUSCULAR HGB CONC 30.8 g/dL (31-35); MEAN CORPUSCULAR VOLUME 78.8 fL (81-99); MONOCYTES # (AUTO) 0.7 (0.2-0.8); MONOCYTES % 9.9 % (4.4-11.3); NEUTROPHILS # (AUTO) 5.1 (2.1-6.9); NEUTROPHILS % 73.8 % (38.7-80.0); PLATELET COUNT 248 x10e3/uL (140-360); RED BLOOD COUNT 4.82 x10e6/uL (3.6-5.1); RED CELL DISTRIBUTION WIDTH 17.3 % (11.7-14.4)
[2024-01-14 15:34] LABS: ALBUMIN 3.1 g/dL (3.5-5.0); ALBUMIN/GLOBULIN RATIO 1.1 (0.8-2.0); ANION GAP 17.9 mmol/L (8-16); BILIRUBIN,TOTAL 1.2 mg/dL (0.2-1.2); CALCIUM 8.8 mg/dL (8.4-10.2); CREATININE, SERUM 1.13 mg/dL (0.57-1.11); POTASSIUM 4.9 mmol/L (3.5-5.1); TOTAL PROTEIN 5.9 g/dL (6.5-8.1)
[2024-01-14] MEDS ORDERED: ONDANSETRON HCL INJ 2MG/ML 2ML 2 MG/ML VIAL IV PRN (17:00)
[2024-01-14] MEDS ORDERED: SODIUM CHLORIDE FLUSH 10 ML SYR INJ PRN (17:00)
[2024-01-14] MEDS: ASPIRIN 81 MG CHEW TAB PO ONE (17:56)
[2024-01-14] MEDS: FUROSEMIDE INJ 10 MG/ML 4 ML VIAL IV SCH (18:27)
[2024-01-14 20:00] VITALS: BP 122/73; PULSE 94; RESP 18; TEMP 97.5; O2SAT 97
[2024-01-14] MEDS: ENOXAPARIN INJ 80 MG/0.8 ML SYR SC SCH (20:30)
[2024-01-14] MEDS: ACETAMINOPHEN 325 MG TAB PO PRN (22:06)
[2024-01-15] VITALS (7 sets, daily range): BP systolic 107–138; BP diastolic 66–85; PULSE 79–101; RESP 18–20; TEMP 97.4–98.2; O2SAT 97–100
[2024-01-15 05:45] LABS: BASOPHILS % 0.1 % (0.0-1.0); EOSINOPHILS # (AUTO) 0.1 (0.0-0.4); EOSINOPHILS % 1.1 % (0.0-6.0); HEMATOCRIT 40.6 % (34.2-44.1); HEMOGLOBIN 12.3 g/dL (12.0-16.0); LYMPHOCYTES # (AUTO) 1.5 (1.0-3.2); LYMPHOCYTES % 21.8 % (18.0-39.1); MEAN CORPUSCULAR HEMOGLOBIN 24.1 pg (28-32); MEAN CORPUSCULAR HGB CONC 30.3 g/dL (31-35); MEAN CORPUSCULAR VOLUME 79.5 fL (81-99); MONOCYTES # (AUTO) 0.9 (0.2-0.8); MONOCYTES % 12.2 % (4.4-11.3); NEUTROPHILS # (AUTO) 4.5 (2.1-6.9); NEUTROPHILS % 64.5 % (38.7-80.0); PLATELET COUNT 269 x10e3/uL (140-360); RED BLOOD COUNT 5.11 x10e6/uL (3.6-5.1); RED CELL DISTRIBUTION WIDTH 17.9 % (11.7-14.4); WHITE BLOOD COUNT 6.96 x10e3/uL (4.8-10.8)
[2024-01-15 06:09] LABS: ALBUMIN 3.3 g/dL (3.5-5.0); ALBUMIN/GLOBULIN RATIO 1.1 (0.8-2.0); ANION GAP 16.4 mmol/L (8-16); BILIRUBIN,TOTAL 1.3 mg/dL (0.2-1.2); CALCIUM 9.1 mg/dL (8.4-10.2); CREATININE, SERUM 1.25 mg/dL (0.57-1.11); POTASSIUM 4.4 mmol/L (3.5-5.1); TOTAL PROTEIN 6.2 g/dL (6.5-8.1)
[2024-01-15 06:45] LABS: TROPONIN I < 0.05 ng/mL (0.0-0.40)
[2024-01-15 06:51] LABS: CREATINE KINASE 45 IU/L (29-168)
[2024-01-15] MEDS: SENNA-S TABLET PO SCH (09:00)
[2024-01-15] MEDS ORDERED: TRAMADOL HCL 50 MG TAB PO PRN (09:00)
[2024-01-15] MEDS ORDERED: HYDRALAZINE HCL 20 MG/ML VIAL IV PRN (09:00)
[2024-01-15] MEDS: POTASSIUM CHLORIDE 10MEQ EA PO SCH (11:06)
[2024-01-15] MEDS: LISINOPRIL 10 MG TAB PO SCH (11:07)
[2024-01-15] MEDS: METOPROLOL SUCCINATE 25 MG TAB XL PO SCH (11:08)
[2024-01-15] MEDS: CANAGLIFLOZIN 100 MG TABLET PO SCH (11:08)
[2024-01-15] MEDS: SPIRONOLACTONE 25 MG TAB PO SCH (11:08)
[2024-01-15] MEDS: INSULIN LISPRO 100 UNIT/1 ML 3ML VIAL SQ SCH (11:47)
[2024-01-15 13:51] LABS: CREATINE KINASE 69 IU/L (29-168)
[2024-01-15] MEDS: GABAPENTIN 100 MG CAP PO SCH (15:02)
[2024-01-15] MEDS: HYDROCODONE/APAP 7.5MG-325MG 1 EA TAB PO PRN (17:24)
[2024-01-16] VITALS (8 sets, daily range): BP systolic 91–156; BP diastolic 52–89; PULSE 75–93; RESP 18–20; TEMP 97.4–98.1; O2SAT 96–100
[2024-01-16 06:24] LABS: BASOPHILS % 0.1 % (0.0-1.0); EOSINOPHILS # (AUTO) 0.1 (0.0-0.4); EOSINOPHILS % 1.9 % (0.0-6.0); HEMATOCRIT 41.3 % (34.2-44.1); HEMOGLOBIN 12.5 g/dL (12.0-16.0); LYMPHOCYTES # (AUTO) 1.3 (1.0-3.2); LYMPHOCYTES % 18.8 % (18.0-39.1); MEAN CORPUSCULAR HGB CONC 30.3 g/dL (31-35); MEAN CORPUSCULAR VOLUME 79.4 fL (81-99); MONOCYTES % 14.4 % (4.4-11.3); NEUTROPHILS # (AUTO) 4.5 (2.1-6.9); NEUTROPHILS % 64.5 % (38.7-80.0); PLATELET COUNT 230 x10e3/uL (140-360); RED CELL DISTRIBUTION WIDTH 18.6 % (11.7-14.4); WHITE BLOOD COUNT 7.01 x10e3/uL (4.8-10.8)
[2024-01-16 06:56] LABS: ANION GAP 16.9 mmol/L (8-16); CALCIUM 9.3 mg/dL (8.4-10.2); CREATININE, SERUM 1.23 mg/dL (0.57-1.11); POTASSIUM 3.9 mmol/L (3.5-5.1)
[2024-01-16] MEDS: ENOXAPARIN INJ 80 MG/0.8 ML SYR SC SCH (08:53)
[2024-01-17] VITALS (8 sets, daily range): BP systolic 90–125; BP diastolic 55–84; PULSE 70–94; RESP 18–19; TEMP 96.7–100; O2SAT 94–100
[2024-01-17 06:11] LABS: ANION GAP 15.5 mmol/L (8-16); CALCIUM 8.7 mg/dL (8.4-10.2); CREATININE, SERUM 1.34 mg/dL (0.57-1.11); POTASSIUM 3.5 mmol/L (3.5-5.1)
[2024-01-17] MEDS: DEXTROSE 50% SYRINGE 50 ML IV PRN (06:27)
[2024-01-17] MEDS: FUROSEMIDE INJ 10 MG/ML 4 ML VIAL IV SCH (13:02)
[2024-01-18] VITALS (8 sets, daily range): BP systolic 109–126; BP diastolic 55–72; PULSE 79–92; RESP 17–21; TEMP 97.5–98.6; O2SAT 95–100
[2024-01-18 07:07] LABS: ANION GAP 19.1 mmol/L (8-16); CALCIUM 8.8 mg/dL (8.4-10.2); CREATININE, SERUM 1.31 mg/dL (0.57-1.11); POTASSIUM 4.1 mmol/L (3.5-5.1)
[2024-01-18] MEDS: APIXABAN 2.5 MG TABLET PO SCH (16:36)
[2024-01-19] VITALS (8 sets, daily range): BP systolic 103–135; BP diastolic 53–89; PULSE 75–101; RESP 18–21; TEMP 97.5–98.3; O2SAT 90–100
[2024-01-19 10:41] LABS: ANION GAP 19.2 mmol/L (8-16); CALCIUM 9.2 mg/dL (8.4-10.2); CREATININE, SERUM 1.27 mg/dL (0.57-1.11); POTASSIUM 4.2 mmol/L (3.5-5.1)
[2024-01-20] VITALS (8 sets, daily range): BP systolic 107–151; BP diastolic 56–75; PULSE 80–89; RESP 13–20; TEMP 97.5–98.4; O2SAT 98–100
[2024-01-20 06:50] LABS: BASOPHILS % 0.1 % (0.0-1.0); EOSINOPHILS # (AUTO) 0.2 (0.0-0.4); EOSINOPHILS % 2.4 % (0.0-6.0); HEMATOCRIT 37.6 % (34.2-44.1); HEMOGLOBIN 11.4 g/dL (12.0-16.0); LYMPHOCYTES # (AUTO) 1.7 (1.0-3.2); LYMPHOCYTES % 20.3 % (18.0-39.1); MEAN CORPUSCULAR HEMOGLOBIN 24.1 pg (28-32); MEAN CORPUSCULAR HGB CONC 30.3 g/dL (31-35); MEAN CORPUSCULAR VOLUME 79.3 fL (81-99); MONOCYTES # (AUTO) 0.9 (0.2-0.8); MONOCYTES % 11.1 % (4.4-11.3); NEUTROPHILS # (AUTO) 5.4 (2.1-6.9); NEUTROPHILS % 65.6 % (38.7-80.0); PLATELET COUNT 222 x10e3/uL (140-360); RED BLOOD COUNT 4.74 x10e6/uL (3.6-5.1); RED CELL DISTRIBUTION WIDTH 17.6 % (11.7-14.4); WHITE BLOOD COUNT 8.17 x10e3/uL (4.8-10.8)
[2024-01-20 07:24] LABS: ANION GAP 15.7 mmol/L (8-16); CALCIUM 8.8 mg/dL (8.4-10.2); CREATININE, SERUM 1.12 mg/dL (0.57-1.11); POTASSIUM 3.7 mmol/L (3.5-5.1)
[2024-01-20] MEDS: APIXABAN 2.5 MG TABLET PO SCH (16:51)
[2024-01-21] VITALS (9 sets, daily range): BP systolic 110–135; BP diastolic 55–71; PULSE 84–116; RESP 17–19; TEMP 97.6–98.7; O2SAT 97–100
[2024-01-21 06:21] LABS: BASOPHILS % 0.1 % (0.0-1.0); EOSINOPHILS # (AUTO) 0.4 (0.0-0.4); EOSINOPHILS % 4.8 % (0.0-6.0); HEMATOCRIT 37.7 % (34.2-44.1); HEMOGLOBIN 11.3 g/dL (12.0-16.0); LYMPHOCYTES # (AUTO) 1.2 (1.0-3.2); LYMPHOCYTES % 16.6 % (18.0-39.1); MEAN CORPUSCULAR VOLUME 80.2 fL (81-99); MONOCYTES # (AUTO) 0.7 (0.2-0.8); MONOCYTES % 9.9 % (4.4-11.3); NEUTROPHILS % 68.2 % (38.7-80.0); PLATELET COUNT 244 x10e3/uL (140-360); RED CELL DISTRIBUTION WIDTH 17.8 % (11.7-14.4); WHITE BLOOD COUNT 7.35 x10e3/uL (4.8-10.8)
[2024-01-21 06:58] LABS: CALCIUM 8.8 mg/dL (8.4-10.2); CREATININE, SERUM 0.89 mg/dL (0.57-1.11)
[2024-01-22] VITALS (8 sets, daily range): BP systolic 115–135; BP diastolic 60–78; PULSE 86–101; RESP 14–20; TEMP 97.4–97.9; O2SAT 98–100
[2024-01-22] MEDS: SODIUM CHLORIDE 0.9% 1000ML 1,000 ML ONE (08:10)
[2024-01-22] MEDS: HEPARIN SOD/SOD CHLORIDE 1,000 ML ONE (08:11)
[2024-01-22] MEDS: NITROGLYCERIN/D5W 200 MCG/ML 250 ML ONE (08:12)
[2024-01-22] MEDS: HEPARIN SOD (PORCINE) 1000 UNIT/ML 30ML ONE (08:12)
[2024-01-22] MEDS: IOPAMIDOL 370 MG/ML 100 ML INFUS..BTL INJ ONE (08:12)
[2024-01-22] MEDS: LIDOCAINE HCL 2% LOCAL 20 ML VIAL ONE (08:12)
[2024-01-22] MEDS: VERAPAMIL HCL 2.5 MG/ML 2 ML VIAL ONE (08:12)
[2024-01-22] MEDS: FENTANYL CITRATE/PF 100MCG/2 ML INJ ONE (08:13)
[2024-01-22] MEDS: MIDAZOLAM HCL 2 MG/2 ML VIAL ONE (08:13)
[2024-01-22] MEDS: PHENYLEPHRINE HCL 1% 10 MG/ML VIAL ONE (08:13)
[2024-01-22] MEDS: SODIUM CHLORIDE 0.9% 0 ML ONE (08:14)
[2024-01-23] VITALS (8 sets, daily range): BP systolic 107–128; BP diastolic 53–76; PULSE 75–98; RESP 17–21; TEMP 97.6–98.3; O2SAT 96–100
[2024-01-23 06:45] LABS: BASOPHILS % 0.2 % (0.0-1.0); EOSINOPHILS # (AUTO) 0.4 (0.0-0.4); EOSINOPHILS % 5.6 % (0.0-6.0); HEMATOCRIT 35.6 % (34.2-44.1); HEMOGLOBIN 10.6 g/dL (12.0-16.0); LYMPHOCYTES # (AUTO) 1.5 (1.0-3.2); LYMPHOCYTES % 23.1 % (18.0-39.1); MEAN CORPUSCULAR HEMOGLOBIN 23.9 pg (28-32); MEAN CORPUSCULAR HGB CONC 29.8 g/dL (31-35); MEAN CORPUSCULAR VOLUME 80.2 fL (81-99); MONOCYTES # (AUTO) 0.7 (0.2-0.8); MONOCYTES % 11.6 % (4.4-11.3); NEUTROPHILS # (AUTO) 3.7 (2.1-6.9); NEUTROPHILS % 59.2 % (38.7-80.0); PLATELET COUNT 239 x10e3/uL (140-360); RED BLOOD COUNT 4.44 x10e6/uL (3.6-5.1); RED CELL DISTRIBUTION WIDTH 17.7 % (11.7-14.4); WHITE BLOOD COUNT 6.29 x10e3/uL (4.8-10.8)
[2024-01-23 07:29] LABS: MAGNESIUM 1.8 MG/DL (1.3-2.1); PHOSPHORUS 2.9 MG/DL (2.3-4.7)
[2024-01-23 07:59] LABS: ANION GAP 15.7 mmol/L (8-16); CALCIUM 8.4 mg/dL (8.4-10.2); CREATININE, SERUM 0.92 mg/dL (0.57-1.11); POTASSIUM 3.7 mmol/L (3.5-5.1)
[2024-01-24] VITALS (7 sets, daily range): BP systolic 95–142; BP diastolic 57–78; PULSE 82–100; RESP 18–22; TEMP 97.7–98.6; O2SAT 98–100
[2024-01-24] MEDS ORDERED: ONDANSETRON HCL 4 MG ORAL DISINTEGRATING TAB PO PRN (11:00)
[2024-01-24] MEDS ORDERED: DICLOFENAC SOD 1% GEL 100 GM TUBE TP PRN (17:15)
[2024-01-24] MEDS: DICLOFENAC SOD 1% GEL 100 GM TUBE TP PRN (17:53)
[2024-01-25] VITALS (7 sets, daily range): BP systolic 102–132; BP diastolic 54–78; PULSE 68–86; RESP 15–19; TEMP 97.4–98.4; O2SAT 93–100
[2024-01-25] MEDS: FUROSEMIDE 40 MG TAB PO SCH (08:29)
[2024-01-26] VITALS (8 sets, daily range): BP systolic 102–170; BP diastolic 59–74; PULSE 76–93; RESP 15–20; TEMP 97.6–98; O2SAT 93–100
[2024-01-26 10:03] LABS: BASOPHILS % 0.3 % (0.0-1.0); EOSINOPHILS # (AUTO) 0.2 (0.0-0.4); EOSINOPHILS % 3.4 % (0.0-6.0); HEMATOCRIT 36.4 % (34.2-44.1); HEMOGLOBIN 10.8 g/dL (12.0-16.0); LYMPHOCYTES # (AUTO) 1.1 (1.0-3.2); LYMPHOCYTES % 18.2 % (18.0-39.1); MEAN CORPUSCULAR HEMOGLOBIN 24.2 pg (28-32); MEAN CORPUSCULAR HGB CONC 29.7 g/dL (31-35); MEAN CORPUSCULAR VOLUME 81.6 fL (81-99); MONOCYTES # (AUTO) 0.5 (0.2-0.8); MONOCYTES % 8.7 % (4.4-11.3); NEUTROPHILS # (AUTO) 4.2 (2.1-6.9); NEUTROPHILS % 69.1 % (38.7-80.0); PLATELET COUNT 263 x10e3/uL (140-360); RED BLOOD COUNT 4.46 x10e6/uL (3.6-5.1); RED CELL DISTRIBUTION WIDTH 17.4 % (11.7-14.4)
[2024-01-26 10:27] LABS: ANION GAP 10.5 mmol/L (8-16); CALCIUM 8.6 mg/dL (8.4-10.2); CREATININE, SERUM 0.88 mg/dL (0.57-1.11); POTASSIUM 3.5 mmol/L (3.5-5.1)
[2024-01-26] MEDS ORDERED: BALSAM PERU/CASTOR OIL 60 GM OINT...G. TP PRN (14:45)
[2024-01-26] MEDS: LISINOPRIL 10 MG TAB PO SCH (21:00)
[2024-01-27] VITALS: BP 109/61; PULSE 80; RESP 20; TEMP 98.4; O2SAT 100
[2024-01-27 04:00] VITALS: BP 127/67; PULSE 72; RESP 18; TEMP 97.9; O2SAT 100
[2024-01-27 08:00] VITALS: BP 95/81; PULSE 85; RESP 18; TEMP 97.9; O2SAT 100
[2024-01-27] MEDS: SPIRONOLACTONE 25 MG TAB PO SCH (08:14)
[2024-01-27 08:22] VITALS: BP 95/81; PULSE 85; RESP 19; TEMP 97.3; O2SAT 99
[2024-01-27] MEDS ORDERED: NYSTATIN/TRIAMCINOLONE 15 GM CR TOP SCH (09:00)
[2024-01-27 12:18] VITALS: BP 124/70; PULSE 90; RESP 18; TEMP 97.4; O2SAT 100
[2024-01-27] MEDS: COLLAGENASE 5 GM TUBE TP SCH (16:43)
[2024-01-27] MEDS: NYSTATIN/TRIAMCINOLONE 30 GM CR TOP SCH (16:43)
[2024-01-28] MEDS ORDERED: CLINDAMYCIN HCL 150 MG CAP PO SCH (09:00)
[2024-01-28] MEDS ORDERED: CIPROFLOXACIN 250 MG TAB PO SCH (09:00)
== END 2024-01-27 17:10 | DRG 286 ==
LOC: ER 13:31 → ERHOLD 17:01 → MED/SURG3 18:02
PROVIDERS: ADMIT Internal Medicine; ATTEND Internal Medicine
PROC: B2111ZZ Fluoroscopy of Multiple Coronary Arteries using Low Osmolar Contrast (ICD-10-PCS; principal; 2024-01-20)
PROC: 4A023N7 Measurement of Cardiac Sampling and Pressure, Left Heart, Percutaneous Approach (ICD-10-PCS; 2024-01-20)
DX: I25.10 Atherosclerotic heart disease of native coronary artery without angina pectoris (principal); I50.23 Acute on chronic systolic (congestive) heart failure; J96.00 Acute respiratory failure, unspecified whether with hypoxia or hypercapnia; I13.0 Hypertensive heart and chronic kidney disease with heart failure and stage 1 through stage 4 chronic kidney disease, or unspecified chronic kidney disease; L97.419 Non-pressure chronic ulcer of right heel and midfoot with unspecified severity; I48.19 Other persistent atrial fibrillation; T87.89 Other complications of amputation stump; L89.156 Pressure-induced deep tissue damage of sacral region; S19.9XXA Unspecified injury of neck, initial encounter; Z99.81 Dependence on supplemental oxygen; E11.22 Type 2 diabetes mellitus with diabetic chronic kidney disease; E11.51 Type 2 diabetes mellitus with diabetic peripheral angiopathy without gangrene; E11.65 Type 2 diabetes mellitus with hyperglycemia; I34.0 Nonrheumatic mitral (valve) insufficiency; F01.50 Vascular dementia, unspecified severity, without behavioral disturbance, psychotic disturbance, mood disturbance, and anxiety; I25.5 Ischemic cardiomyopathy; E78.5 Hyperlipidemia, unspecified; N18.30 Chronic kidney disease, stage 3 unspecified; R53.81 Other malaise; M19.90 Unspecified osteoarthritis, unspecified site; Y83.5 Amputation of limb(s) as the cause of abnormal reaction of the patient, or of later complication, without mention of misadventure at the time of the procedure; W18.39XA Other fall on same level, initial encounter; Y92.531 Health care provider office as the place of occurrence of the external cause; Z79.84 Long term (current) use of oral hypoglycemic drugs; Z90.49 Acquired absence of other specified parts of digestive tract; Z90.710 Acquired absence of both cervix and uterus; Z89.412 Acquired absence of left great toe; Z88.1 Allergy status to other antibiotic agents
CPT/HCPCS: 36415; 70450; 71045; 71250; 72125; 72131; 80048; 80053; 82550; 82947; 82948; 83036; 83735; 83880; 84100; 84443; 84484; 85025; 93005; 93458; 96372; 99152; 99153; 99252; 99284; C1760; C1769; C1887; J1644; J1650; J1940; J2003; J2250; J2371; J7030; J7050; J7799; Q9967